=== PATIENT | male | born 1965 | race Caucasian/White ===

== ENCOUNTER → 2017-11-20 | Outpatient (CLI) | payer OTHER ==
[2017-11-20 12:58] LABS: APPEARANCE, URINE MANUAL CLEAR (CLEAR); COLOR, URINE MANUAL YELLOW (YELLOW)
[2017-11-20 12:59] LABS: BILIRUBIN, URINE MANUAL NEGATIVE (NEGATIVE); BLOOD URINE MANUAL NEGATIVE (NEGATIVE); GLUCOSE, URINE (UA) MANUAL NEGATIVE (NEGATIVE); KETONE, URINE MANUAL NEGATIVE (NEGATIVE); LEUKOCYTE ESTERASE, URINE MAN NEGATIVE (NEGATIVE); MICROSCOPIC INDICATED? MAN NO (NO); NITRITE, URINE MANUAL NEGATIVE (NEGATIVE); PROTEIN, URINE MANUAL NEGATIVE (NEGATIVE); SPECIFIC GRAVITY,URINE MANUAL 1.025 (1.002-1.035); UROBILINOGEN, URINE MANUAL NORMAL (NORMAL)
== END ==
LOC: M WUC 10:04
DX: M54.5 Low back pain (principal)
CPT/HCPCS: 81002

== ENCOUNTER → 2017-11-20 | Outpatient (CLI) | payer OTHER | LOC: M RAD 11:52 | DX: R10.30 Lower abdominal pain, unspecified (principal); M54.5 Low back pain | CPT/HCPCS: 74176 ==

== ENCOUNTER → 2018-09-21 | Outpatient (CLI) | payer OTHER ==
[~2018-09-21] MED LIST: FLOM0.4C39 PO; HYDR-3713; IBUP80TA; PERC7.5T11 PO; ZOFR4TAB14 PO
--- NOTE | 2018-09-21 13:43 | REP ---
RIGHT HIP, TWO VIEWS: HISTORY: Pain. There is no acute fracture or dislocation. There is minimal narrowing of the joint space. IMPRESSION: Degenerative change as described above. Electronically Signed by Jean Balderas MD 09/21/2018 01:45 P
--- NOTE | 2018-09-21 14:04 | REP ---
LUMBAR SPINE, SIX VIEWS: HISTORY: Back pain. There is no acute fracture or subluxation. The L3-4 through L5-S1 intervertebral discs are decreased in height consistent with disc degeneration. Osteophytes are present on L3-5. The facet joints are normal in appearance. IMPRESSION: Degenerative change as described above. Unreviewed
== END ==
LOC: M WUC 12:13
PROVIDERS: ATTEND Student in an Organized Health Care Education/Training Program
DX: M54.5 Low back pain (principal); R10.31 Right lower quadrant pain

== ENCOUNTER → 2018-09-27 | Outpatient (REF) | payer OTHER ==
[2018-09-27 18:30] LABS: APPEARANCE, URINE CLEAR (CLEAR); BACTERIA, URINE AUTO NEGATIVE (NEGATIVE); BILIRUBIN, URINE AUTO NEGATIVE (NEGATIVE); BLOOD, URINE BLOOD 1+ (NEGATIVE); COLOR, URINE YELLOW (YELLOW); GLUCOSE, URINE (UA) AUTO NEGATIVE (NEGATIVE); KETONE, URINE AUTO NEGATIVE (NEGATIVE); LEUKOCYTE ESTERASE, URINE AUTO NEGATIVE (NEGATIVE); MUCUS, URINE SMALL (NEGATIVE); NITRITE, URINE AUTO NEGATIVE (NEGATIVE); PROTEIN, URINE AUTO NEGATIVE (NEGATIVE); RBC, URINE AUTO 9 /HPF (0-3); SPECIFIC GRAVITY URINE AUTO 1.017 (1.002-1.035); SQUAMOUS EPITHELIAL CELL UR AU 0 /HPF (0-6); UROBILINOGEN, URINE AUTO 0.2 mg/dL (0.0-2.0); WBC, URINE AUTO 16 /HPF (0-3)
== END ==
LOC: M SFHCPLAZ 17:00
PROVIDERS: ATTEND Student in an Organized Health Care Education/Training Program
DX: R35.0 Frequency of micturition (principal)

== ENCOUNTER → 2018-09-28 | Outpatient (CLI) | payer OTHER ==
[2018-09-28 12:28] LABS: BLOOD UREA NITROGEN 17 MG/DL (7-18); CARBON DIOXIDE LEVEL 27 MEQ/L (21-32); CHLORIDE LEVEL 106 MEQ/L (98-107); CREATININE FOR GFR 1.25 MG/DL (0.70-1.30); GLOMERULAR FILTRATION RATE > 60.0 (>56); GLUCOSE, FASTING 101 MG/DL (70-100); POTASSIUM SERUM 4.4 MEQ/L (3.5-5.1); SODIUM LEVEL 141 MEQ/L (136-145)
[2018-09-28 12:46] LABS: HEMOGLOBIN A1c 5.9 %
== END ==
LOC: M WUC 08:38
PROVIDERS: ATTEND Student in an Organized Health Care Education/Training Program
DX: Z13.1 Encounter for screening for diabetes mellitus (principal); I10 Essential (primary) hypertension

== ENCOUNTER → 2018-10-09 | Outpatient (REF) | payer OTHER ==
[2018-10-09 19:02] LABS: APPEARANCE, URINE CLEAR (CLEAR); BACTERIA, URINE AUTO NEGATIVE (NEGATIVE); BILIRUBIN, URINE AUTO NEGATIVE (NEGATIVE); BLOOD, URINE BLOOD 1+ (NEGATIVE); COLOR, URINE YELLOW (YELLOW); GLUCOSE, URINE (UA) AUTO NEGATIVE (NEGATIVE); KETONE, URINE AUTO NEGATIVE (NEGATIVE); LEUKOCYTE ESTERASE, URINE AUTO NEGATIVE (NEGATIVE); MUCUS, URINE SMALL (NEGATIVE); NITRITE, URINE AUTO NEGATIVE (NEGATIVE); PROTEIN, URINE AUTO NEGATIVE (NEGATIVE); RBC, URINE AUTO 5 /HPF (0-3); SPECIFIC GRAVITY URINE AUTO 1.018 (1.002-1.035); SQUAMOUS EPITHELIAL CELL UR AU 0 /HPF (0-6); UROBILINOGEN, URINE AUTO 0.2 mg/dL (0.0-2.0); WBC, URINE AUTO 1 /HPF (0-3)
== END ==
LOC: M SFHCPLAZ 15:41
PROVIDERS: ATTEND Student in an Organized Health Care Education/Training Program
DX: Z28.21 Immunization not carried out because of patient refusal (principal)

== ENCOUNTER → 2018-10-18 | Outpatient (CLI) | payer OTHER ==
[~2018-10-18] MED LIST changes: +ISOVUE-370 76% 100ML VIAL (Q9967) As Ordered ONE
--- NOTE | 2018-10-18 09:36 | REP ---
CT of the abdomen pelvis without and with IV contrast, CT urogram protocol: Scanning is initially performed without IV contrast. After IV contrast scanning is performed initially during the renal cortical phase of enhancement and repeated during the renal excretion phase of enhancement. Comparison is 11/20/2017. On images without IV contrast. There are multiple right renal calculi, similar to the prior study. However, on the current study there is right hydronephrosis as an interval change. There are two calculi in the distal right ureter at the UVJ, one measuring 7 mm and the other 7 mm. There are no left renal calculi. There are no left ureteral calculi. There is no left hydronephrosis. There are phleboliths in the pelvis. There is a simple cyst in the upper pole right kidney measuring 11 mm. There is a simple cyst in the upper pole left kidney measuring 17 mm. No solid renal masses are identified. The abdominal aorta is unremarkable. Bowel and mesentery are unremarkable except for sigmoid diverticulosis without acute diverticulitis, unchanged. Pelvis: There is no ascites or adenopathy. The bladder is unremarkable. The pelvic bowel loops are unremarkable except for sigmoid diverticulosis without diverticulitis. Impression: There are two calculi in the distal right ureter as described. There is right hydronephrosis. There are multiple nonobstructive right renal calculi. There are bilateral renal cortical simple cysts. No solid renal masses. Sigmoid diverticulosis without acute diverticulitis. Electronically Signed by Ananda Petty MD 10/18/2018 09:27 A
--- NOTE | 2018-10-18 11:29 | REP ---
ULTRASOUND URINARY BLADDER: Real-time sonographic evaluation of the urinary bladder performed. The bladder measures 8.3 x 7.9 x 6.7 cm for a total volume of 287 mL. There are bilateral ureteral jets seen in the urinary bladder with Doppler color evaluation. No bladder mass is seen. A calculus is seen in the distal right ureter. After voiding, post void residual is 9 mL which is 3% of the original volume. IMPRESSION: There is a distal right ureteral calculus seen, with a right ureteral jet identified in the urinary bladder indicating that the calculus partially obstructs the ureter. No bladder wall abnormality. Post void residual is 3%. Electronically Signed by Ananda Neely MD 10/19/2018 10:19 A
== END ==
LOC: M RAD 08:32
PROVIDERS: ATTEND Student in an Organized Health Care Education/Training Program
DX: N13.2 Hydronephrosis with renal and ureteral calculous obstruction (principal); I87.8 Other specified disorders of veins; K57.30 Diverticulosis of large intestine without perforation or abscess without bleeding; N28.1 Cyst of kidney, acquired; R31.29 Other microscopic hematuria
CPT/HCPCS: 74178; 76857; Q9967

== ENCOUNTER → 2018-10-24 | Outpatient (REF) | payer OTHER ==
[~2018-10-24] MED LIST changes: -ISOVUE-370 76% 100ML VIAL (Q9967) As Ordered ONE
== END ==
LOC: M SFHCPLAZ 17:03
PROVIDERS: ATTEND Student in an Organized Health Care Education/Training Program
DX: N20.0 Calculus of kidney (principal)

== ENCOUNTER → 2018-11-05 | Outpatient (REF) | payer OTHER ==
[2018-11-05 18:55] LABS: AMORPHOUS SEDIMENT SMALL (NEGATIVE); APPEARANCE, URINE HAZY (CLEAR); BACTERIA, URINE AUTO NEGATIVE (NEGATIVE); BILIRUBIN, URINE AUTO NEGATIVE (NEGATIVE); BLOOD, URINE BLOOD 1+ (NEGATIVE); CALCIUM OXALATE CRYSTALS LARGE; COLOR, URINE YELLOW (YELLOW); GLUCOSE, URINE (UA) AUTO NEGATIVE (NEGATIVE); KETONE, URINE AUTO NEGATIVE (NEGATIVE); LEUKOCYTE ESTERASE, URINE AUTO NEGATIVE (NEGATIVE); MUCUS, URINE SMALL (NEGATIVE); NITRITE, URINE AUTO NEGATIVE (NEGATIVE); PROTEIN, URINE AUTO NEGATIVE (NEGATIVE); RBC, URINE AUTO 9 /HPF (0-3); SPECIFIC GRAVITY URINE AUTO 1.026 (1.002-1.035); SQUAMOUS EPITHELIAL CELL UR AU 0 /HPF (0-6); UROBILINOGEN, URINE AUTO 0.2 mg/dL (0.0-2.0); WBC, URINE AUTO 1 /HPF (0-3)
[2018-11-10 00:07] LABS: CA Oxalate Dihy 25 % (.); Ca Ox Monohydrate 65 % (.); Size 7x4x3 mm (.)
== END ==
LOC: M SMT 17:23
PROVIDERS: ATTEND Nurse Practitioner Women's Health
DX: N20.1 Calculus of ureter (principal)

== ENCOUNTER → 2018-11-05 | Outpatient (CLI) | payer OTHER ==
--- NOTE | 2018-11-05 18:56 | REP ---
Clinical: Ureteral calculus. Technique: Two supine views of the abdomen and pelvis. Correlation CT dated 10/18/2018. Findings: Some of A 7 mm right intrarenal calculus is identified. The two 7 mm distal ureteral calculi noted on the CT are not visualized on current radiographs. Small phleboliths noted in the pelvis measure up to 3 mm. The bowel gas pattern is nonspecific. Skeletal structures are intact. Impression: 1. Nonobstructing 7 mm right renal calculus. 2. The right distal ureteral calculi noted on CT are not visible on current radiographs. Electronically Signed by Jared Mosqueda MD 11/05/2018 06:47 P
== END ==
LOC: M SMT 15:01
PROVIDERS: ATTEND Nurse Practitioner Women's Health
DX: N20.1 Calculus of ureter (principal)

== ENCOUNTER 2020-09-09 10:53 | Emergency (ER) | payer BC, OTHER ==
[~2020-09-09] VITALS: Ht 172.7 cm; Wt 82.7 kg
[2020-09-09] VITALS (12 sets, daily range): BP systolic 134–184; BP diastolic 60–108
--- NOTE | 2020-09-09 11:39 | REP ---
INDICATION: Coronavirus workup COMPARISON: None. TECHNIQUE: Portable AP view of the chest FINDINGS: The mediastinum and cardiac silhouette are within normal limits for portable technique. The lung manzo demonstrate subtle airspace disease to the left lower lung zone which should be correlated with auscultation. No effusion. No pneumothorax. IMPRESSION: Suspected subtle airspace disease to the left lower lung zone. <Electronically signed by Jared Mosqueda > 09/09/20 [id number]
[2020-09-09 11:40] LABS: BASO % 0.2 % (0.0-1.0); HEMATOCRIT 47.6 % (42.0-52.0); HEMOGLOBIN 16.4 g/dl (13.5-17.5); LYMPH # 1.5 10^3/uL (1.5-5.0); LYMPH % 11.7 % (24.0-44.0); MEAN CORPUSCULAR HEMOGLOBIN 30.3 pg (27.0-33.0); MEAN CORPUSCULAR HGB CONC 34.5 g/dl (32.0-36.5); MONO # 1.3 10^3/uL (0.0-0.8); MONO % 9.7 % (0.0-5.0); NEUTROPHILS # 10.2 10^3/uL (1.5-8.5); NEUTROPHILS % 77.7 % (36.0-66.0); PLATELET COUNT, AUTOMATED 171 10^3/uL (150-450); RED BLOOD COUNT 5.41 10^6/uL (4.30-6.10); WHITE BLOOD COUNT 13.1 10^3/uL (4.0-10.0)
[2020-09-09] MEDS ORDERED: METH4PACK PO (11:41)
[2020-09-09] MEDS ORDERED: AZIT-12 PO (11:41)
[2020-09-09 12:11] LABS: ALBUMIN 3.7 GM/DL (3.2-5.2); ALT/SGPT 51 U/L (12-78); BILIRUBIN,TOTAL 1.8 MG/DL (0.2-1.0); BLOOD UREA NITROGEN 25 MG/DL (7-18); C REACTIVE PROTEIN QUANTITATIV 8.82 MG/DL (0.00-0.30); CALCIUM LEVEL 8.8 MG/DL (8.5-10.1); CARBON DIOXIDE LEVEL 24 MEQ/L (21-32); CHLORIDE LEVEL 102 MEQ/L (98-107); CREATININE FOR GFR 1.26 MG/DL (0.70-1.30); FERRITIN 372 NG/ML (26-388); GLOMERULAR FILTRATION RATE > 60.0 (>56); GLUCOSE, FASTING 98 MG/DL (70-100); LDH LACTATE DEHYDROGENASE 245 U/L (87-241); POTASSIUM SERUM 3.7 MEQ/L (3.5-5.1); SODIUM LEVEL 135 MEQ/L (136-145); TOTAL PROTEIN 7.6 GM/DL (6.4-8.2); TROPONIN I < 0.02 NG/ML (< 0.10)
[2020-09-09 13:03] LABS: ABG HCO3 22.9 MEQ/L (22.0-26.0); ABG O2 SATURATION 94.6 % (95.0-99.0); ABG PARTIAL PRESSURE CO2 29.9 mmHg (35.0-45.0); ABG PARTIAL PRESSURE O2 66.8 mmHg (75.0-100.0); ABG STANDARD HCO3 25.3 MEQ/L (22.0-26.0); ABG TOTAL CO2 23.8 MEQ/L (22.0-29.0); ABG pH (ARTERIAL) 7.502 UNITS (7.350-7.450)
[2020-09-09] MEDS ORDERED: NS 1,000 ML IV SCH ×2 (13:50→14:42)
[2020-09-09] MEDS ORDERED: ALBUTEROL SULFATE 2.5 MG/0.5 ML INH NEB SOLN INH PRN ×2 (14:00→14:45)
[2020-09-09] MEDS ORDERED: ALBUTEROL 90 MCG/ACT 8GM HFA INHALER INH PRN ×2 (14:00→14:45)
[2020-09-09] MEDS ORDERED: diphenhydrAMINE 50MG/ML VIAL (J1200) IV PRN ×2 (14:00→14:45)
[2020-09-09] MEDS ORDERED: methylPREDNISolone 125MG 2ML VIAL IV PRN ×2 (14:00→14:45)
[2020-09-09] MEDS ORDERED: EPINEPHrine INJ 1 MG/ML 1ML AMP IM PRN ×2 (14:00→14:45)
[2020-09-09] MEDS ORDERED: BAMLANIVIMAB 700 MG in NS 250 ML IV ONE ×2 (14:00→16:00)
[2020-09-09] MEDS ORDERED: FISH1000 PO (14:48)
[2020-09-09] MEDS ORDERED: ACET-683 PO (14:48)
[2020-09-09] MEDS ORDERED: VITA250T4 PO (14:48)
--- NOTE | 2020-09-09 15:28 | CR.PDOC ---
General Date of Consultation: Sep 09, 2020 Referring Provider: A Attending Physician: JUDIT GARRETT MD Consultation REASON FOR CONSULTATION/CHIEF COMPLAINT: Covid-19 infection HISTORY OF PRESENT ILLNESS: 55 yo M who was recently diagnosed with covid-19 a few days ago who presents to the ED with SOB and after evaluation by the ED physician was deemed appropriate for bamlanivimab infusion for increased risk at developing severe covid-19 disease. In the ED, he is hemodynamically stable, afebrile and breathing comfortably on room air and reports moderate cough, dyspnea with exertion, without chest pain, palpitations, diarrhea. His medical history is significant for GERD and a history of kidney stones. Evaluation today showed a leukocytosis to 13.1, Hgb 16.4, platelets 171, Na 135, K 3.7, Cr 1.26, Ddimer 662.36, lactate 1.1, ferritin 372, troponin <0.02, LDH 245, CRP 8.82 and CXR showed subtle airspace disease in the LLL zone. He is now being admitted for outpatient infusion of bamlanivimab. ALLERGIES: Please see below. HOME MEDICATIONS: Please see below. PAST MEDICAL HISTORY: GERD REVIEW OF SYSTEMS: 10 point ROS was completed and pertinent positives are noted above, with all else negative at this time. PHYSICAL EXAMINATION: VITAL SIGNS: Please see below. GENERAL APPEARANCE: NAD HEENT: NCAT, flushed face, injected, anicteric RESPIRATORY: CTAB, no crackles, rhonchi or wheezing CARDIOVASCULAR: RRR, no m/r/g ABDOMEN: Normoactive bowel sounds, soft, NTND EXTREMITIES: WWP, no LE edema NEUROLOGICAL: CN 3-12 intact, moving all extremities spontaneously, clear speech PSYCHIATRIC: AOx3 LABORATORY DATA: Please see below. Summarized above ASSESSMENT/PLAN: 55 yo M with covid-19 infection who is being admitted for outpatient infusion of bamlanivimab. Plan: Being admitted for bamlanivimab infusion per protocol for home discharge thereafter. Vital Signs/I&O Vital Signs Date Time Temp Pulse Resp B/P (MAP) Pulse Ox O2 Delivery O2 Flow Rate FiO2 09/09/20 13:39 92 90 09/09/20 13:30 20 161/96 (117) 09/09/20 12:09 Room Air 09/09/20 11:36 97.0 Laboratory Data Labs 24H Laboratory Tests 2 09/09/20 11:28: Immature Granulocyte % (Auto) 0.7, Neutrophils (%) (Auto) 77.7H, Lymphocytes (%) (Auto) 11.7L, Monocytes (%) (Auto) 9.7H, Eosinophils (%) (Auto) 0.0, Basophils (%) (Auto) 0.2, Neutrophils # (Auto) 10.2H, Lymphocytes # (Auto) 1.5, Monocytes # (Auto) 1.3H, Eosinophils # (Auto) 0.0, Basophils # (Auto) 0.0, Nucleated Red Blood Cells % (auto) 0.0, D-Dimer, Quantitative 662.36H, Lactic Acid Level 1.1 09/09/20 11:29: Anion Gap 9, Glomerular Filtration Rate > 60.0, Calcium Level 8.8, Ferritin 372, Total Bilirubin 1.8H, Aspartate Amino Transf (AST/SGOT) 17, Alanine Aminotransferase (ALT/SGPT) 51, Alkaline Phosphatase 52, Lactate Dehydrogenase 245H, Troponin I < 0.02, C-Reactive Protein, Quantitative 8.82H, Total Protein 7.6, Albumin 3.7, Albumin/Globulin Ratio 0.9 09/09/20 12:57: Blood Gas Bicarbonate Standard 25.3, Arterial Blood pH 7.502H, Arterial Blood Partial Pressure CO2 29.9L, Arterial Blood Partial Pressure O2 66.8L, Arterial Blood Total CO2 23.8, Arterial Blood HCO3 22.9, Arterial Blood Base Excess 1.0, Arterial Blood Oxygen Saturation 94.6L CBC/BMP Laboratory Tests 09/09/20 11:28 09/09/20 11:29 Allergies Coded Allergies: No Known Allergies (Unverified , 09/09/20) Home Medications Scheduled Azithromycin (Azithromycin) 250 Mg Tablet, 250 MG PO DAILY, (Reported) Methylprednisolone (Methylprednisolone) 4 Mg Tab.ds.pk, 4 MG PO as directed, (Reported) JUDIT GARRETT MD Sep 09, 2020 15:28
[2020-09-09] MEDS ORDERED: LABETALOL 100MG/20ML VIAL IV ONE (16:15)
[2020-09-09] MEDS ORDERED: diphenhydrAMINE 50MG/ML VIAL (J1200) IV ONE (17:00)
[2020-09-09] MEDS ORDERED: ACETAMINOPHEN TAB 650MG DOSE (2X325MG) PO ONE (18:15)
[2020-09-09] MEDS ORDERED: BENZONATATE 100 MG CAP PO ONE (18:15)
--- NOTE | 2020-09-10 05:21 | ECGEPIP ---
[facility] - ED Test Date: 2020-09-09 Pat Name: LÓPEZ PEÑA Department: Room: - Gender: Male [employer]: RENAE : 1965 Requested By: Efe Chatman Order Number: [id number] Reading MD: Herbie Quiñones Measurements Intervals [place] Rate: 90 P: 45 FL: 144 QRS: -29 QRSD: 106 T: 30 QT: 349 QTc: 427 Interpretive Statements SINUS RHYTHM Electronically Signed on 09-10-2020 5:21:30 EST by Herbie Quiñones
== END 2020-09-09 23:30 | disposition home or self-care (01) ==
LOC: M ED 10:53 → M ED INP 10:54 → UNDOADMOB 10:54 → M ICU 15:40 → M ED INP 15:40 → M ED 23:30 → UNDODISOB 23:30
DX: U07.1 COVID-19 (principal)
CPT/HCPCS: 36600; 71045; 80053; 82728; 82803; 83605; 83615; 84484; 85025; 85379; 86140; 93005; 96374; 96375; 99285; J1200

== ENCOUNTER → 2020-09-18 | Outpatient (CLI) | payer SELFPAY ==
[~2020-09-18] MED LIST changes: +ACET-683 PO; +AZIT-12 PO; +FISH1000 PO; +METH4PACK PO; +VITA250T4 PO
== END ==
LOC: M LABSMTC 13:40
PROVIDERS: ATTEND Pediatrics
DX: Z20.822 Contact with and (suspected) exposure to COVID-19 (principal)

== ENCOUNTER → 2020-09-21 | Outpatient (REF) | payer BC ==
[2020-09-21 12:55] LABS: HEMATOCRIT 46.8 % (42.0-52.0); HEMOGLOBIN 15.8 g/dl (13.5-17.5); MEAN CORPUSCULAR HEMOGLOBIN 30.7 pg (27.0-33.0); MEAN CORPUSCULAR HGB CONC 33.8 g/dl (32.0-36.5); MEAN CORPUSCULAR VOLUME 91.1 fl (80.0-96.0); PLATELET COUNT, AUTOMATED 230 10^3/uL (150-450); RED BLOOD COUNT 5.14 10^6/uL (4.30-6.10); WHITE BLOOD COUNT 9.9 10^3/uL (4.0-10.0)
[2020-09-21 14:12] LABS: ALBUMIN 3.7 GM/DL (3.2-5.2); ALT/SGPT 48 U/L (12-78); BILIRUBIN,TOTAL 1.2 MG/DL (0.2-1.0); BLOOD UREA NITROGEN 15 MG/DL (7-18); CARBON DIOXIDE LEVEL 28 MEQ/L (21-32); CHLORIDE LEVEL 107 MEQ/L (98-107); CHOLESTEROL LEVEL 171 MG/DL (<200); CREATININE FOR GFR 1.08 MG/DL (0.70-1.30); GLOMERULAR FILTRATION RATE > 60.0 (>56); GLUCOSE, FASTING 87 MG/DL (70-100); HDL CHOLESTEROL 36 MG/DL (>40); LDL CHOLESTEROL 93 MG/DL (<100); NON-HDL-C 135 MG/DL; POTASSIUM SERUM 4.5 MEQ/L (3.5-5.1); SODIUM LEVEL 140 MEQ/L (136-145); TOTAL PROTEIN 7.2 GM/DL (6.4-8.2); TRIGLYCERIDES LEVEL 210 MG/DL (<150)
[2020-09-21 14:36] LABS: HEMOGLOBIN A1c 5.3 %
== END ==
LOC: M SFHCPLAZ 10:05
PROVIDERS: ATTEND Family Medicine
DX: U07.1 COVID-19 (principal); Z13.220 Encounter for screening for lipoid disorders; Z13.1 Encounter for screening for diabetes mellitus

== ENCOUNTER → 2020-09-25 | Outpatient (CLI) | payer SELFPAY | LOC: M LABSMTC 12:42 | PROVIDERS: ATTEND Pediatrics | DX: Z20.822 Contact with and (suspected) exposure to COVID-19 (principal) ==

== ENCOUNTER → 2020-10-02 | Outpatient (CLI) | payer SELFPAY | LOC: M LABSMTC 11:59 | PROVIDERS: ATTEND Pediatrics | DX: Z20.822 Contact with and (suspected) exposure to COVID-19 (principal) ==

== ENCOUNTER → 2020-10-19 | Outpatient (CLI) | payer BC ==
--- NOTE | 2020-10-19 18:11 | REPPI ---
INDICATION: R93.89 ABNORMAL CHEST XRAY COMPARISON: 09/09/2020 TECHNIQUE: PA and lateral. FINDINGS: The mediastinum and cardiac silhouette are normal. The lung manzo are clear and without acute consolidation, effusion, or pneumothorax. The skeletal structures are intact and normal. IMPRESSION: No acute cardiopulmonary process. <Electronically signed by Jared Mosqueda > 10/19/20 1334
== END ==
LOC: M PLAIMG 08:13
PROVIDERS: ATTEND Student in an Organized Health Care Education/Training Program
DX: R93.89 Abnormal findings on diagnostic imaging of other specified body structures (principal)

== ENCOUNTER → 2021-05-07 | Outpatient (REF) | payer BC | LOC: M SFHCPLAZ 14:39 | PROVIDERS: ATTEND Family Medicine | DX: I10 Essential (primary) hypertension (principal); Z53.8 Procedure and treatment not carried out for other reasons ==

== ENCOUNTER → 2021-05-31 | Outpatient (CLI) | payer BC ==
[2021-05-31 16:12] LABS: BLOOD UREA NITROGEN 16 MG/DL (7-18); CALCIUM LEVEL 9.6 MG/DL (8.5-10.1); CARBON DIOXIDE LEVEL 27 MEQ/L (21-32); CHLORIDE LEVEL 108 MEQ/L (98-107); CREATININE FOR GFR 1.16 MG/DL (0.70-1.30); GLOMERULAR FILTRATION RATE > 60.0 (>56); GLUCOSE, FASTING 111 MG/DL (70-100); POTASSIUM SERUM 3.8 MEQ/L (3.5-5.1); SODIUM LEVEL 141 MEQ/L (136-145)
== END ==
LOC: M PLALAB 14:02
PROVIDERS: ATTEND Family Medicine
DX: I10 Essential (primary) hypertension (principal)

== ENCOUNTER → 2022-04-14 | Outpatient (REF) | payer OTHER ==
[2022-04-14 17:31] LABS: HEMATOCRIT 42.4 % (42.0-52.0); HEMOGLOBIN 14.9 g/dl (13.5-17.5); MEAN CORPUSCULAR HEMOGLOBIN 31.3 pg (27.0-33.0); MEAN CORPUSCULAR HGB CONC 35.1 g/dl (32.0-36.5); MEAN CORPUSCULAR VOLUME 89.1 fl (80.0-96.0); PLATELET COUNT, AUTOMATED 165 10^3/uL (150-450); RED BLOOD COUNT 4.76 10^6/uL (4.30-6.10); WHITE BLOOD COUNT 8.8 10^3/uL (4.0-10.0)
[2022-04-14 18:56] LABS: ALBUMIN 3.9 GM/DL (3.2-5.2); ALT/SGPT 30 U/L (12-78); BILIRUBIN,TOTAL 1.7 MG/DL (0.2-1.0); BLOOD UREA NITROGEN 22 MG/DL (7-18); CALCIUM LEVEL 9.1 MG/DL (8.5-10.1); CARBON DIOXIDE LEVEL 26 MEQ/L (21-32); CHLORIDE LEVEL 108 MEQ/L (98-107); CHOLESTEROL LEVEL 166 MG/DL (<200); CHOLESTEROL RISK RATIO 3.772 (<5); CREATININE FOR GFR 1.22 MG/DL (0.70-1.30); GLOMERULAR FILTRATION RATE > 60.0 (>56); GLUCOSE, FASTING 84 MG/DL (70-100); HDL CHOLESTEROL 44 MG/DL (>40); LDL CHOLESTEROL 101 MG/DL (<100); NON-HDL-C 122 MG/DL; POTASSIUM SERUM 4.1 MEQ/L (3.5-5.1); SODIUM LEVEL 139 MEQ/L (136-145); TOTAL PROTEIN 7.3 GM/DL (6.4-8.2); TRIGLYCERIDES LEVEL 106 MG/DL (<150)
[2022-04-14 21:33] LABS: HEMOGLOBIN A1c 5.4 %
== END ==
LOC: M SFHCCLAY 13:58
PROVIDERS: ATTEND Nurse Practitioner Family
DX: I11.9 Hypertensive heart disease without heart failure (principal); E78.5 Hyperlipidemia, unspecified; Z12.5 Encounter for screening for malignant neoplasm of prostate

== ENCOUNTER → 2022-04-21 | Outpatient (REF) | payer OTHER | LOC: M SFHCDERM 16:01 | PROVIDERS: ATTEND Nurse Practitioner Family | DX: C44.519 Basal cell carcinoma of skin of other part of trunk (principal) ==

== ENCOUNTER → 2022-06-28 | Outpatient (REF) | payer OTHER | LOC: M LAB REF 16:01 | PROVIDERS: ATTEND Surgery | DX: L08.9 Local infection of the skin and subcutaneous tissue, unspecified (principal) ==

== ENCOUNTER → 2023-02-06 | Outpatient (REF) | payer OTHER ==
[2023-02-06 19:11] LABS: BLOOD UREA NITROGEN 20 MG/DL (9-23); CALCIUM LEVEL 8.6 MG/DL (8.5-10.1); CARBON DIOXIDE LEVEL 27 MMOL/L (20-31); CHLORIDE LEVEL 105 MMOL/L (98-107); CHOLESTEROL LEVEL 158 MG/DL (<200); CHOLESTEROL RISK RATIO 3.96 (<5); CREATININE FOR GFR 1.06 MG/DL (0.70-1.30); GLOMERULAR FILTRATION RATE > 60.0 (>56); GLUCOSE, FASTING 93 MG/DL (60-100); HDL CHOLESTEROL 39.8 MG/DL (>40); LDL CHOLESTEROL 70.2 MG/DL (<100); NON-HDL-C 118.2 MG/DL; POTASSIUM SERUM 3.8 MMOL/L (3.5-5.1); SODIUM LEVEL 140 MMOL/L (136-145); TRIGLYCERIDES LEVEL 240 MG/DL (<150)
== END ==
LOC: M SFHCCLAY 14:05
PROVIDERS: ATTEND Nurse Practitioner Family
DX: E78.5 Hyperlipidemia, unspecified (principal); I10 Essential (primary) hypertension

== ENCOUNTER → 2023-11-24 | Outpatient (REF) | payer OTHER ==
[2023-11-24 18:09] LABS: PSA SCREENING 0.43 NG/ML (< 4.00)
[2023-11-24 18:14] LABS: IRON (FE) 52 UG/DL (65-175); THYROID STIMULATING HORMONE 1.933 uIU/ML (0.55-4.78)
[2023-11-24 18:15] LABS: ALBUMIN 4.5 G/DL (3.2-5.2); ALKALINE PHOSPHATASE 47 U/L (46-116); ALT/SGPT 29 U/L (7.0-40); APPEARANCE, URINE HAZY (CLEAR); AST/SGOT 11 U/L (<34); BACTERIA, URINE AUTO NEGATIVE (NEGATIVE); BILIRUBIN, URINE AUTO NEGATIVE (NEGATIVE); BLOOD UREA NITROGEN 25 MG/DL (9-23); BLOOD, URINE BLOOD NEGATIVE (NEGATIVE); CALCIUM LEVEL 10.3 MG/DL (8.3-10.6); CALCIUM OXALATE CRYSTALS LARGE; CARBON DIOXIDE LEVEL 26 MMOL/L (20-31); CHLORIDE LEVEL 103 MMOL/L (98-107); COLOR, URINE YELLOW (YELLOW); CREATININE FOR GFR 1.17 MG/DL (0.70-1.30); GLOMERULAR FILTRATION RATE > 60.0 (>49); GLUCOSE, FASTING 103 MG/DL (74-106); GLUCOSE, URINE (UA) AUTO NEGATIVE (NEGATIVE); KETONE, URINE AUTO NEGATIVE (NEGATIVE); LEUKOCYTE ESTERASE, URINE AUTO NEGATIVE (NEGATIVE); MUCUS, URINE SMALL (NEGATIVE); NITRITE, URINE AUTO NEGATIVE (NEGATIVE); POTASSIUM SERUM 4.4 MMOL/L (3.5-5.1); PROTEIN, URINE AUTO NEGATIVE (NEGATIVE); RBC, URINE AUTO 0 /HPF (0-3); SODIUM LEVEL 137 MMOL/L (136-145); SPECIFIC GRAVITY URINE AUTO 1.018 (1.002-1.035); SQUAMOUS EPITHELIAL CELL UR AU 0 /HPF (0-6); TOTAL PROTEIN 7.4 G/DL (5.7-8.2); UROBILINOGEN, URINE AUTO 0.2 mg/dL (0.0-2.0); WBC, URINE AUTO 1 /HPF (0-3)
[2023-11-24 18:16] LABS: FREE T4 1.33 NG/DL (0.89-1.76)
[2023-11-24 18:17] LABS: BASO # 0.1 10^3/uL (0.0-0.2); BASO % 0.5 % (0.0-1.0); EOS # 0.1 10^3/uL (0.0-0.5); HEMATOCRIT 43.6 % (42.0-52.0); HEMOGLOBIN 15.1 g/dl (13.5-17.5); LYMPH # 2.7 10^3/uL (1.5-5.0); LYMPH % 18.8 % (24.0-44.0); MEAN CORPUSCULAR HEMOGLOBIN 32.2 pg (27.0-33.0); MEAN CORPUSCULAR HGB CONC 34.6 g/dl (32.0-36.5); MONO # 1.6 10^3/uL (0.0-0.8); MONO % 11.1 % (2.0-8.0); NEUTROPHILS # 9.9 10^3/uL (1.5-8.5); NEUTROPHILS % 68.2 % (36.0-66.0); PLATELET COUNT, AUTOMATED 231 10^3/uL (150-450); RED BLOOD COUNT 4.69 10^6/uL (4.30-6.10); WHITE BLOOD COUNT 14.5 10^3/uL (4.0-10.0)
== END ==
LOC: M SFHCCLAY 11:03
PROVIDERS: ATTEND Family Medicine
DX: R35.0 Frequency of micturition (principal); C43.59 Malignant melanoma of other part of trunk; L76.32 Postprocedural hematoma of skin and subcutaneous tissue following other procedure; R39.12 Poor urinary stream; R20.0 Anesthesia of skin; T81.89XS Other complications of procedures, not elsewhere classified, sequela

== ENCOUNTER → 2024-02-27 | Outpatient (CLI) | payer OTHER ==
[~2024-02-27] MED LIST changes: +LISI5TAB11; +VITA250T27 PO; -VITA250T4 PO
== END ==
LOC: M PLARAD 11:58
PROVIDERS: ATTEND Specialist
DX: C43.9 Malignant melanoma of skin, unspecified (principal)
CPT/HCPCS: 78816; A9552

== ENCOUNTER → 2024-05-01 | Outpatient (CLI) | payer OTHER | LOC: M RAD 14:41 | PROVIDERS: ATTEND Specialist | DX: C43.9 Malignant melanoma of skin, unspecified (principal); R59.0 Localized enlarged lymph nodes ==

== ENCOUNTER → 2024-09-05 | Outpatient (CLI) | payer OTHER | LOC: M RAD 09:53 | PROVIDERS: ATTEND Registered Nurse | DX: C43.9 Malignant melanoma of skin, unspecified (principal) ==

== ENCOUNTER → 2024-09-20 | Outpatient (CLI) | payer OTHER ==
[~2024-09-20] MED LIST changes: +ISOVUE-370 76% 100ML VIAL As Ordered ONE
== END ==
LOC: M RAD 12:33
PROVIDERS: ATTEND Physician Assistant
DX: C43.9 Malignant melanoma of skin, unspecified (principal); R91.1 Solitary pulmonary nodule; N20.0 Calculus of kidney; R16.1 Splenomegaly, not elsewhere classified; K57.30 Diverticulosis of large intestine without perforation or abscess without bleeding
CPT/HCPCS: 71260; 74177; Q9967

== ENCOUNTER → 2024-11-26 | Outpatient (CLI) | payer OTHER ==
[~2024-11-26] MED LIST changes: +FAMO1TAB11; -ISOVUE-370 76% 100ML VIAL As Ordered ONE; +LOSA25TA13
== END ==
LOC: M RAD 12:39
PROVIDERS: ATTEND Physician Assistant
DX: C43.9 Malignant melanoma of skin, unspecified (principal)

== ENCOUNTER → 2025-01-02 | Outpatient (CLI) | payer OTHER ==
[~2025-01-02] MED LIST changes: -FLOM0.4C39 PO; +ISOVUE-370 76% 100ML VIAL As Ordered ONE; +TAMS-18 PO
== END ==
LOC: M RAD 10:47
PROVIDERS: ATTEND Surgery
DX: C43.9 Malignant melanoma of skin, unspecified (principal); R59.0 Localized enlarged lymph nodes; R16.1 Splenomegaly, not elsewhere classified; N20.0 Calculus of kidney
CPT/HCPCS: 71260; 74177; 76882; Q9967

== ENCOUNTER → 2025-01-20 | Outpatient (CLI) | payer OTHER ==
[~2025-01-20] MED LIST changes: -ISOVUE-370 76% 100ML VIAL As Ordered ONE
[2025-01-20 15:00] LABS: HEMATOCRIT 45.8 % (42.0-52.0); HEMOGLOBIN 15.7 g/dl (13.5-17.5); MEAN CORPUSCULAR HEMOGLOBIN 31.2 pg (27.0-33.0); MEAN CORPUSCULAR HGB CONC 34.3 g/dl (32.0-36.5); MEAN CORPUSCULAR VOLUME 90.9 fl (80.0-96.0); PLATELET COUNT, AUTOMATED 202 10^3/uL (150-450); RED BLOOD COUNT 5.04 10^6/uL (4.30-6.10); WHITE BLOOD COUNT 7.9 10^3/uL (4.0-10.0)
[2025-01-20 15:11] LABS: ALBUMIN 4.4 G/DL (3.2-5.2); BILIRUBIN,TOTAL 2.3 MG/DL (0.3-1.2); CALCIUM LEVEL 9.5 MG/DL (8.3-10.6); CHOLESTEROL RISK RATIO 3.67 (<5); CREATININE FOR GFR 1.09 MG/DL (0.70-1.30); GLOMERULAR FILTRATION RATE 77.2 (>49); HDL CHOLESTEROL 46.2 MG/DL (>40); NON-HDL-C 123.8 MG/DL; POTASSIUM SERUM 4.1 MMOL/L (3.5-5.1); TOTAL PROTEIN 7.3 G/DL (5.7-8.2)
[2025-01-20 15:49] LABS: HEMOGLOBIN A1c 5.2 % (4.0-6.0)
== END ==
LOC: M WUC 08:18
PROVIDERS: ATTEND Nurse Practitioner Family
DX: I10 Essential (primary) hypertension (principal); E78.5 Hyperlipidemia, unspecified

== ENCOUNTER → 2025-04-23 | Outpatient (CLI) | payer OTHER ==
[~2025-04-23] MED LIST changes: +ISOVUE-370 76% 100 ML VIAL As Ordered ONE
== END ==
LOC: M RAD 12:29
PROVIDERS: ATTEND Internal Medicine Hematology & Oncology
DX: C43.59 Malignant melanoma of other part of trunk (principal)
CPT/HCPCS: 71260; 74177; Q9967

== ENCOUNTER → 2025-04-30 | Outpatient (CLI) | payer OTHER ==
[~2025-04-30] MED LIST changes: -ISOVUE-370 76% 100 ML VIAL As Ordered ONE
[2025-04-30 12:37] LABS: CREATININE FOR GFR 0.97 MG/DL (0.70-1.30); GLOMERULAR FILTRATION RATE 88.3 (>49)
== END ==
LOC: M WUC 08:27
PROVIDERS: ATTEND Psychiatry & Neurology Neurology
DX: I10 Essential (primary) hypertension (principal)

== ENCOUNTER → 2025-06-16 | Outpatient (CLI) | payer OTHER | LOC: M RAD 13:25 | PROVIDERS: ATTEND Surgery | DX: C43.9 Malignant melanoma of skin, unspecified (principal) ==

== ENCOUNTER → 2025-06-24 | Outpatient (REF) | payer OTHER | LOC: M SFHCCLAY 14:32 | PROVIDERS: ATTEND Nurse Practitioner Family | DX: Z00.00 Encounter for general adult medical examination without abnormal findings (principal); I10 Essential (primary) hypertension; R91.1 Solitary pulmonary nodule; E78.5 Hyperlipidemia, unspecified; Z85.820 Personal history of malignant melanoma of skin; K21.9 Gastro-esophageal reflux disease without esophagitis; R20.0 Anesthesia of skin; R20.2 Paresthesia of skin; N52.9 Male erectile dysfunction, unspecified; Z53.9 Procedure and treatment not carried out, unspecified reason ==

== ENCOUNTER → 2025-07-10 | Outpatient (REF) | payer OTHER | LOC: M SFHCDERM 17:50 | PROVIDERS: ATTEND Nurse Practitioner Family | DX: D49.2 Neoplasm of unspecified behavior of bone, soft tissue, and skin (principal) ==

== ENCOUNTER → 2025-07-24 | Outpatient (REF) | payer OTHER | LOC: M SFHCDERM 13:24 | PROVIDERS: ATTEND Nurse Practitioner Family | DX: C80.1 Malignant (primary) neoplasm, unspecified (principal) ==